=== PATIENT | female | born 1995 | race Caucasian/White ===

== ENCOUNTER 2018-02-24 03:18 | Emergency (ER) | payer OTHER ==
[2018-02-24] MEDS: LIDOCAINE/MYLANTA 40 ML BTL PO (04:44)
[2018-02-24] MEDS: FAMOTIDINE 20 MG TAB PO (04:44)
[2018-02-24] MEDS: DICYCLOMINE 20 MG INJ IM (04:45)
[2018-02-24 04:48] LABS: URINE BLOOD (Dip) POC Negative (NEGATIVE); URINE GLUCOSE (Dip) POC Negative (NEGATIVE); URINE KETONES (Dip) POC Negative (NEGATIVE); URINE LEUKOCYTE EST (Dip) POC Negative (NEGATIVE); URINE NITRITE (Dip) POC Negative (NEGATIVE); URINE TOTAL PROTEIN POC Negative (NEGATIVE)
[2018-02-24 04:48] LABS: URINE PH (Dip) POC 5.5 (5.0-8.5)
[2018-02-24 05:11] LABS: ADD UMIC NO; UR ASCORBIC ACID NEGATIVE (NEGATIVE); UR BILIRUBIN (Dip) NEGATIVE (NEGATIVE); UR BLOOD (Dip) NEGATIVE (NEGATIVE); UR CLARITY CLEAR (CLEAR); UR COLOR STRAW (YELLOW); UR GLUCOSE (Dip) NEGATIVE (NEGATIVE); UR KETONES (Dip) NEGATIVE (NEGATIVE); UR LEUKOCYTE ESTERASE (Dip) NEGATIVE Leu/ul (NEGATIVE); UR NITRITE (Dip) NEGATIVE (NEGATIVE); UR SPECIFIC GRAVITY (Dip) 1.011 (1.003-1.030); UR TOTAL PROTEIN (Dip) NEGATIVE (NEGATIVE); UR UROBILINOGEN (Dip) NEGATIVE (NEGATIVE)
== END 2018-02-24 05:39 | disposition home or self-care (01) ==
LOC: E/R 03:18
DX: R10.32 Left lower quadrant pain (principal); J45.909 Unspecified asthma, uncomplicated
CPT/HCPCS: 81003; 81025; 96372; 99284-25

== ENCOUNTER 2019-05-10 02:22 | Emergency (ER) | payer OTHER ==
[2019-05-10] MEDS: CYCLOBENZAPRINE 10 MG TAB PO (03:32)
== END 2019-05-10 04:44 | disposition home or self-care (01) ==
LOC: FTE 02:22
DX: M62.838 Other muscle spasm (principal); J45.909 Unspecified asthma, uncomplicated
CPT/HCPCS: 81025; 99283